=== PATIENT | female | born 1960 | race Two or more races ===

== ENCOUNTER → 2024-05-30 | Outpatient (CLI) | payer BC, MEDICARE, SELFPAY ==
--- NOTE | 2024-05-30 14:00 | XR_ITS ---
Examination: Bone densitometry Date and time of exam:May 30, 2024 1354 hours INDICATIONS: Hysterectomy age 38, family history mother hip fracture due to osteoporosis Technique: Lumbar spine and hip total bone mineralization values of an calculated. Peak reference and age match control results have been displayed. Findings: Lumbar spine total bone mineralization is1.010 gm/cm2. This is 0.3 standard deviations below peak reference. This is 1.5 standard deviations above age-matched controls. Hip total bone mineralization is 0.836 gm/cm2 This is 0.9 standard deviations below peak reference. This is 0.2 standard deviations above age-matched controls Impression: There is normal mineralization based on lumbar spine measurements. There is osteopenia based on hip measurements
== END | disposition home or self-care (01) ==
PROVIDERS: Referring Provider Internal Medicine; Visit Provider Internal Medicine
DX: M85.88 Other specified disorders of bone density and structure, other site (principal)
CPT/HCPCS: 77080